=== PATIENT | male | born 2000 | race Caucasian/White ===

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

== ENCOUNTER 2022-09-09 12:42 | Emergency (ER) | payer MEDICAID, OTHER ==
--- NOTE | 2022-09-09 12:56 | ERPHSYRPT ---
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 Since that time he felt a grittiness, foreign body sensation and burning sensation each time he would blink. There was some blurred vision temporarily. However he rinsed the left eye out fairly aggressively and his symptoms of blurred vision did improve. However he still feels as though there is a foreign body present when he blinks in the left eye. Timing/Duration: today Severity: mild Associated Symptoms: denies symptoms Allergies/Adverse Reactions: No Known Drug Allergies Allergy (Verified 09/09/22 13:23) Hx Tetanus, Diphtheria Vaccination/Date Given: Yes Hx Influenza Vaccination/Date Given: No Hx Pneumococcal Vaccination/Date Given: No Travel Risk - International Travel Have you traveled outside of the country in past 3 weeks: No - Coronavirus Screening Are you exhibiting any of the following symptoms?: No Close contact with a COVID-19 positive Pt in past 14-21 Days: No - Review of Systems Constitutional: No Symptoms Eyes: Foreign Body Sensation (In left eye when he blinks the left eye), Other (Mild burning left eye pain) Ears, Nose, & Throat: No Symptoms Respiratory: No Symptoms Cardiac: No Symptoms Abdominal/Gastrointestinal: No Symptoms Genitourinary Symptoms: No Symptoms Musculoskeletal: No Symptoms Skin: No Symptoms Neurological: No Symptoms Psychological: No Symptoms Endocrine: No Symptoms Hematologic/Lymphatic: No Symptoms Immunological/Allergic: No Symptoms All Other Systems: Reviewed and Negative - Past Medical History Pertinent Past Medical History: Yes Respiratory History: Asthma Other Medical History: scott to hands- due for surg soon for grafting - Past Surgical History Past Surgical History: Yes Other Surgical History: hands,jaw -fracture - Social History Smoking Status: Never smoker Exposure to second hand smoke: No Drug Use: none Patient Lives Alone: Yes - Nursing Vital Signs Nursing Vital Signs: Initial Vital Signs Temperature 97 F 09/09/22 13:28 Pulse Rate 81 09/09/22 13:28 Respiratory Rate 18 09/09/22 13:28 Blood Pressure 131/95 09/09/22 13:28 O2 Sat by Pulse Oximetry 97 09/09/22 13:28 Pain Scale Pain Intensity 5 - Physical Exam General Appearance: no apparent distress, alert, anxiety Eye Exam: PERRL/EOMI, eyes nml inspection, other (Careful examination of the left eye) Ears, Nose, Throat Exam: normal ENT inspection, moist mucous membranes Neck Exam: normal inspection ( reveals no evidence of foreign body.), non- tender, supple, full range of motion Respiratory Exam: airway intact, No chest tenderness, No respiratory distress Gastrointestinal/Abdomen Exam: No tenderness Rectal Exam: not done Back Exam: normal inspection, normal range of motion, No CVA tenderness, No vertebral tenderness Extremity Exam: normal inspection, normal range of motion, pelvis stable Neurologic Exam: alert, oriented x 3, cooperative, financial aid officer II-XII nml as tested, normal mood/affect, nml cerebellar function, nml station & gait, sensation nml Skin Exam: normal color, warm, dry Lymphatic Exam: No adenopathy SpO2 Interpretation: normal O2 Delivery: Room Air - Course Nursing assessment & vital signs reviewed: Yes Ordered Tests: Medication Summary Discontinued Medications Generic Name Dose Route Start Last Admin Trade Name Justo PRN Reason Stop Dose Admin Erythromycin 1 gm 09/09/22 14:19 09/09/22 14:21 Erythromycin Base 1 Gm Tube Eye Ointment OP 09/09/22 14:20 1 gm STAT STA Administration Erythromycin Confirm 09/09/22 14:20 Erythromycin Base 1 Gm Tube Eye Ointment Administered 09/09/22 14:21 Dose 1 gm .ROUTE .ST-MED ONE - Progress Progress: improved Progress Note: 09/09/22 14:26 This patient's medical issue is 1 of low complexity. The level complexity and the work-up performed is based on the review of the patient's past medical history and review of the patient's medication list, review of the patient's drug allergy list, history present illness and physical findings on examination. There is no need for laboratory or radiographic studies in this patient. We will treat him clinically for a corneal abrasion of his left eye. There is no obvious foreign bodies present. Counseled pt/family regarding: diagnosis, need for follow-up Medical Desision Making - Diagnostic Testing Diagnostic test were ordered, analyzed, and reviewed by me: No - Risk of complications The pt has a mod risk of morbidity or mortality based on: Need for prescription drug management - Departure Departure Disposition: Home Clinical Impression: Abrasion of left cornea Condition: Stable Critical Care Time: No Referrals: UZIEL GAGE [NON-STAFF PHY W/O PRIVILEGES] - Follow up/PCP as directed Additional Instructions: Before each instillation of erythromycin ointment into the left eye 3 times a day, rinse out the left eye aggressively. May use Tylenol and ibuprofen for pain control. Use the erythromycin ointment 3 times a day for the next 4 days. If symptoms worsen at any time, or symptoms persist beyond 4 days, follow-up with an general merchandise manager for further evaluation and management. Prescriptions: Erythromycin Base 3.5 gm [Erythromycin 3.5 GM OPHTH.] 3.5 gm OP TID #1 unit
[2022-09-09 13:28] VITALS: BP 131/95; PULSE 81; O2SAT 97
[2022-09-09] MEDS ORDERED: Erythromycin 1 GM OP STA (14:19)
[2022-09-09] MEDS ORDERED: Erythromycin 1 GM ONE (14:20)
== END 2022-09-09 14:41 | disposition home or self-care (01) ==
LOC: ED 12:42
DX: S05.02XA Injury of conjunctiva and corneal abrasion without foreign body, left eye, initial encounter (principal); W20.8XXA Other cause of strike by thrown, projected or falling object, initial encounter; Y93.H3 Activity, building and construction
CPT/HCPCS: 99281; A9270-GY

== ENCOUNTER 2023-11-23 20:06 | Emergency (ER) | payer SELFPAY ==
[2023-11-23 20:28] VITALS: TEMP 98.1
[2023-11-23] MEDS ORDERED: DUONEB 0.5-3 MG/3 ml Neb IH ONE (20:33)
[2023-11-23] MEDS: DUONEB 0.5-3 MG/3 ml Neb IH ONE (20:38)
[2023-11-23 20:46] VITALS: RESP 16
--- NOTE | 2023-11-23 20:48 | ERPHSYRPT ---
- History of Present Illness Time Seen by Provider: 11/23/23 20:30 Source: patient Exam Limitations: no limitations Patient Subjective Stated Complaint: pt states he has had a cough and chest congestion for last week. Triage Nursing Assessment: pt alert and oriented, answers questions approp. pt ambualtes into room with steady gait noted. respirations nonlabored with exp wheezing noted bilat. Physician History: 23yo m w/ pmhx of asthma presents w/ 1wk productive cough. Pt reports multiple sick contacts w/ URI sx at work. Pt denies any known fevers at home, does endorse some diarrhea but no vomiting. Pt reports cough is productive of yellow sputum. Pt denies any sore throat, does endorse some sinus congestion and fatigue. Pt reports good PO intake. Timing/Duration: week(s) (1) Cough Quality/Degree: moderate, productive cough Possible Cause: occasional episodes Associated Symptoms: cough, nasal congestion, nasal drainage, No fever, No chills, No chest pain/soreness, No dizziness, No earache, No facial pain, No headache, No shortness of breath, No sinus infection, No sore throat, No wheezing Allergies/Adverse Reactions: No Known Drug Allergies Allergy (Verified 11/23/23 20:28) Hx Tetanus, Diphtheria Vaccination/Date Given: Yes Hx Influenza Vaccination/Date Given: No Hx Pneumococcal Vaccination/Date Given: No Immunizations Up to Date: Yes Travel Risk - International Travel Have you traveled outside of the country in past 3 weeks: No - Emerging Infectious Disease Are you exhibiting symptoms associated with any current EIDs: Yes Symptoms: Cough: New Onset - Review of Systems Constitutional: Fatigue, No Fever, No Chills Respiratory: Cough, No Dyspnea, No Stridor, No Wheezing Cardiac: No Chest Pain, No Palpitations, No Syncope Abdominal/Gastrointestinal: Diarrhea, No Abdominal Pain, No Nausea, No Vomiting Skin: No Symptoms - Past Medical History Pertinent Past Medical History: Yes Respiratory History: Asthma Other Medical History: scott to hands- due for surg soon for grafting - Past Surgical History Past Surgical History: Yes Musculoskeletal: Orthopedic Surgery Other Surgical History: hands,jaw -fracture - Social History Smoking Status: Never smoker Exposure to second hand smoke: No Drug Use: none Patient Lives Alone: Yes - Social Determinants of Health Will the patient participate in the screening: Yes Do you worry about a steady place to live?: No Do you have any problems with any of the following?: No known problems In the past 12 months,have you had to go without utilities?: No Transportation Issues: No Has anyone in your support network made you feel unsafe?: No Have you or anyone in your house had to go without enough: No - Nursing Vital Signs Nursing Vital Signs: Initial Vital Signs Temperature 98.1 F 11/23/23 20:11 Pulse Rate 85 11/23/23 20:11 Respiratory Rate 16 11/23/23 20:11 Blood Pressure 160/89 11/23/23 20:11 O2 Sat by Pulse Oximetry 97 11/23/23 20:11 Pain Scale Pain Intensity 0 - Physical Exam General Appearance: no apparent distress, alert Ears, Nose, Throat Exam: normal ENT inspection, TMs normal, pharynx normal, moist mucous membranes Respiratory Exam: airway intact, rhonchi, No respiratory distress, No diminished breath sounds, No accessory muscle use, No prolonged expirations, No crackles/rales, No wheezing, No stridor Cardiovascular Exam: regular rate/rhythm, normal heart sounds, normal peripheral pulses Gastrointestinal/Abdomen Exam: soft, normal bowel sounds, No tenderness Skin Exam: normal color, warm, dry SpO2 Interpretation: normal SpO2: 97 O2 Delivery: Room Air Ordered Tests: Active Orders 24 hr Category Date Time Status CHEST 2 VIEWS (PA AND LAT) Stat Exams 11/23/23 20:27 Taken Respiratory Therapy Assessment DAILY RT 11/23/23 20:45 Active Medication Summary Discontinued Medications Generic Name Dose Route Start Last Admin Trade Name Jermaineq PRN Reason Stop Dose Admin Albuterol/Ipratropium 3 ml 11/23/23 20:27 11/23/23 20:38 Ipratropium/Albuterol Sulfate 3 Ml Ampul.Neb IH 11/23/23 20:28 3 ml STAT ONE Administration Albuterol/Ipratropium Confirm 11/23/23 20:33 Ipratropium/Albuterol Sulfate 3 Ml Ampul.Neb Administered 11/23/23 20:34 Dose 3 ml IH .STK-MED ONE Lab/Rad Data: Laboratory Results 11/23/23 Range/Units 20:35 Influenza Type A Ag NEGATIVE (NEGATIVE) Influenza Type B Ag NEGATIVE (NEGATIVE) RSV (PCR) NEGATIVE (NEGATIVE) SARS-CoV-2 (PCR) NEGATIVE (NEGATIVE) - Progress Progress: improved Air Movement: good Progress Note: 11/23/23 22:09 pt reports cough improved significantly w/ duoneb treatment lung sound moderately improved on re-exam Plan to discharge home w/ PCP follow up w/in 1 week w/ Dr Toribio will send albuterol inhaler to pharmacy for as needed use return to ED if: develop shortness of breath, develop chest pain 11/23/23 22:14 Blood Culture(s) Obtained: No Antibiotics given: No Counseled pt/family regarding: lab results, diagnosis, need for follow-up, rad results Medical Desision Making - Diagnostic Testing Diagnostic test were ordered, analyzed, and reviewed by me: Yes Radiological Interpretation: Interpreted by me, Reviewed by me - Risk of complications Minimal Risk: Minimal risk of morbidity - Departure Departure Disposition: Home Clinical Impression: Cough Qualifiers: Cough type: acute Qualified Code(s): R05.1 - Acute cough Condition: Stable Critical Care Time: No Referrals: BETSEY TORIBIO MD [Primary Care Provider] - Follow up/PCP as directed Additional Instructions: Plan to discharge home w/ PCP follow up w/in 1 week w/ Dr Toribio will send albuterol inhaler to pharmacy for as needed use return to ED if: develop shortness of breath, develop chest pain Prescriptions: Albuterol Sulfate [Albuterol Sulfate Hfa] 8.5 gm IH Q6HPRN PRN #1 inh PRN Reason: Cough
[2023-11-23 20:57] VITALS: O2SAT 97
[2023-11-23 21:25] LABS: INFLUENZA A NEGATIVE (NEGATIVE); INFLUENZA B NEGATIVE (NEGATIVE); RESPIRATORY SYNCTIAL VIRUS NEGATIVE (NEGATIVE); SARS-CoV-2 Xpert Express NEGATIVE (NEGATIVE)
[2023-11-23 22:28] VITALS: BP 145/74; PULSE 72
--- NOTE | 2023-11-24 08:48 | XRAY ---
Indication: Cough. Comparison: June 21, 2013 PA/lateral chest again demonstrates normal heart, lungs, and bony thorax.
== END 2023-11-23 22:26 | disposition home or self-care (01) ==
LOC: ED 20:06
DX: R05.1 Acute cough (principal); R09.81 Nasal congestion; R53.83 Other fatigue; Z79.899 Other long term (current) drug therapy
CPT/HCPCS: 0241U; 71046; 94640; 99282; A9270-GY

== ENCOUNTER 2024-05-18 19:14 | Emergency (ER) | payer BC, OTHER ==
[2024-05-18 19:31] VITALS: TEMP 98.5; O2SAT 98
[2024-05-18] MEDS ORDERED: DELTASONE 20 MG ONE (19:56)
[2024-05-18] MEDS ORDERED: Augmentin 875-125 Tablet ONE (19:56)
--- NOTE | 2024-05-18 19:57 | ERPHSYRPT ---
- History of Present Illness Time Seen by Provider: 05/18/24 19:35 Source: patient Exam Limitations: no limitations Patient Subjective Stated Complaint: c/o left sided ear pain Triage Nursing Assessment: patient brought into ED with c/o left sided ear pain. patient had some redness present in left ear canal. patient denies a cough, sorethroat, rhinitis, or headaches. throat slightly reddened. patient stated that symtpoms started on 05/17/3023 and symptoms are getting worse. vitals wnl, skin w/n/d, gait steady, patient doesn't appear to be in any distress at this time. Physician History: 23-year-old male presents to our ED with his mother for evaluation of muffled hearing at his left ear. Patient describes some discomfort as a pressure sensation. Patient has rhinorrhea and sinus pressure as well. Symptoms have been ongoing for the past 2 to 3 days. Patient feels the symptoms are progressive. Symptoms are mild to moderate in intensity. No specific worsening or improving factors. Patient reports he is otherwise healthy. No other systemic manifestations. No headache no photophobia no neck pain. No meningeal signs. Mother at bedside. They voiced no other complaints or concerns at this time. Portions of this note were created with voice recognition technology. There may be grammatical, spelling, punctuation or sound alike errors Timing/Duration: day(s) (2 to 3 days) Severity: moderate Modifying Factors: Improves With: nothing Associated Symptoms: denies symptoms Allergies/Adverse Reactions: No Known Drug Allergies Allergy (Verified 05/18/24 19:22) Hx Tetanus, Diphtheria Vaccination/Date Given: Yes Hx Influenza Vaccination/Date Given: No Hx Pneumococcal Vaccination/Date Given: No Travel Risk - International Travel Have you traveled outside of the country in past 3 weeks: No - Emerging Infectious Disease Are you exhibiting symptoms associated with any current EIDs: No Symptoms: Cough: New Onset - Review of Systems Constitutional: No Symptoms, No Fever, No Chills Eyes: No Symptoms Ears, Nose, & Throat: No Symptoms Respiratory: No Symptoms, No Cough, No Dyspnea Cardiac: No Symptoms, No Chest Pain, No Edema, No Syncope Abdominal/Gastrointestinal: No Symptoms, No Abdominal Pain, No Nausea, No Vomiting, No Diarrhea Genitourinary Symptoms: No Symptoms, No Dysuria Musculoskeletal: No Symptoms, No Back Pain, No Neck Pain Skin: No Symptoms, No Rash Neurological: No Symptoms, No Dizziness, No Focal Weakness, No Sensory Changes Psychological: No Symptoms Endocrine: No Symptoms Hematologic/Lymphatic: No Symptoms Immunological/Allergic: No Symptoms All Other Systems: Reviewed and Negative - Past Medical History Pertinent Past Medical History: Yes Respiratory History: Asthma Other Medical History: scott to hands- due for surg soon for grafting, broken jaw in 2011 - Past Surgical History Past Surgical History: Yes Musculoskeletal: Orthopedic Surgery Other Surgical History: hands,jaw -fracture - Social History Smoking Status: Never smoker Exposure to second hand smoke: No Drug Use: none - Social Determinants of Health Will the patient participate in the screening: Yes Do you worry about a steady place to live?: No Do you have any problems with any of the following?: No known problems In the past 12 months,have you had to go without utilities?: No Transportation Issues: No Has anyone in your support network made you feel unsafe?: No Have you or anyone in your house had to go w/o enough food: No - Nursing Vital Signs Nursing Vital Signs: Initial Vital Signs Temperature 98.5 F 05/18/24 19:22 Pulse Rate 100 H 05/18/24 19:22 Respiratory Rate 19 05/18/24 19:22 Blood Pressure 139/75 05/18/24 19:22 O2 Sat by Pulse Oximetry 98 05/18/24 19:22 Pain Scale Pain Intensity 0 - Physical Exam General Appearance: no apparent distress, alert Eye Exam: PERRL/EOMI, eyes nml inspection Ears, Nose, Throat Exam: normal ENT inspection, TMs normal, pharynx normal, moist mucous membranes, other (Erythematous posterior pharynx, left otitis media and rhinorrhea/nasal congestion) Neck Exam: normal inspection, non-tender, supple, full range of motion Respiratory Exam: normal breath sounds, lungs clear, airway intact, No resp iratory distress Cardiovascular Exam: regular rate/rhythm, normal heart sounds, normal peripheral pulses Gastrointestinal/Abdomen Exam: soft, normal bowel sounds, No tenderness, No mass Back Exam: normal inspection, normal range of motion, No CVA tenderness, No vertebral tenderness Extremity Exam: normal inspection, normal range of motion, pelvis stable Neurologic Exam: alert, oriented x 3, cooperative, normal mood/affect, nml cerebellar function, nml station & gait, sensation nml, No motor deficits Skin Exam: normal color, warm, dry, No rash Lymphatic Exam: No adenopathy SpO2 Interpretation: normal SpO2: 98 O2 Delivery: Room Air - Course Nursing assessment & vital signs reviewed: Yes Ordered Tests: Medication Summary Discontinued Medications Generic Name Dose Route Start Last Admin Trade Name Justo PRN Reason Stop Dose Admin Amoxicillin/Clavulanate Potassium 875 mg 05/18/24 19:54 Amox Tr/Potassium Clavulanate 875 Mg Tablet PO 05/18/24 19:55 STAT ONE Prednisone 60 mg 05/18/24 19:54 Prednisone 20 Mg Tablet PO 05/18/24 19:55 STAT ONE - Progress Progress: improved Progress Note: 23-year-old male with no significant past medical history presents to our ED with his mother for evaluation of left ear pressure URI symptomology sinus pressure that has been on going for approximately 2 to 3 days. Patient symptoms are progressive. Physical exam reveals an erythematous oropharynx a injected left tympanic membrane that is slightly bulging versus the contralateral side. No cervical lymphadenopathy. Lungs are otherwise clear no other physical exam findings to speak of. Patient received an oral dose of prednisone 60 mg. Patient also received a dose of Augmentin in our ED. A prescription for the same was forwarded to patient's pharmacy. Patient agrees to follow-up with his primary care doctor within 48 hours for reevaluation. Patient voices no other complaints or concerns at this time. Portions of this note were created with voice recognition technology. There may be grammatical, spelling, punctuation or sound alike errors Complexity of problem addressed is moderate acute complicated. No critical care time. Complexity of data reviewed and analyzed is none. No specialized testing ordered. Diagnosis made based on history and physical exam. Risk of complication and or risk of morbidity/mortality of patient management is moderate. A prescription for Augmentin and prednisone forwarded to patient's pharmacy. Vital stable. Time spent to discharge patient is approximately 15 minutes. Plan of care established for shared decision making. No social determinants of health present to impede follow-up. Portions of this note were created with voice recognition technology. There may be grammatical, spelling, punctuation or sound alike errors 05/18/24 20:03 Counseled pt/family regarding: diagnosis, need for follow-up - Departure Departure Disposition: Home Clinical Impression: Otitis media, Pharyngitis, Sinusitis Condition: Stable Critical Care Time: No Referrals: BETSEY TORIBIO MD [Primary Care Provider] - Follow up/PCP as directed Additional Instructions: Discharge/Care Plan BROOKLYN VEE was seen on 05/18/24 in the Emergency Room. The patient was counseled regarding Diagnosis,Lab results, Imaging studies, need for follow up and when to return to the Emergency Room. Prescriptions given: Discharge Note I have spoken with the patient and/or caregivers. I have explained the patient's condition, diagnosis and treatment plan based on the information available to me at this time. I have answered the patient's and/or caregiver's questions and addressed any concerns. The patient and/or caregivers have as good understanding of the patient's diagnosis, condition and treatment plan as can be expected at this point. The vital signs have been stable. The patient's condition is stable and appropriate for discharge from the emergency department. The patient will pursue further outpatient evaluation with the primary care physician or other designated or consulting physician as outlined in the discharge instructions. The patient and/or caregivers are agreeable to this plan of care and follow-up instructions have been explained in detail. The patient and/or caregivers have received these instruction. The patient/and or caregivers are aware that any significant change in condition or worsening of symptoms should prompt an immediate return to this or the closest emergency department or call 911. Prescriptions: Amox Tr/Potass Clav. 875 mg [Augmentin 875-125 Tablet] 875 mg PO BID 7 Days #14 tablet Prednisone 10 mg [Deltasone 10 mg] 40 mg PO DAILY 3 Days #12 tablet
[2024-05-18] MEDS: Augmentin 875-125 Tablet PO ONE (19:58)
[2024-05-18] MEDS: DELTASONE 20 MG PO ONE (19:58)
[2024-05-18 20:11] VITALS: BP 136/71; PULSE 91; RESP 18
== END 2024-05-18 20:11 | disposition home or self-care (01) ==
LOC: ED 19:14
DX: H66.92 Otitis media, unspecified, left ear (principal); J02.9 Acute pharyngitis, unspecified; J32.9 Chronic sinusitis, unspecified; H91.92 Unspecified hearing loss, left ear; Z79.52 Long term (current) use of systemic steroids; Z79.899 Other long term (current) drug therapy
CPT/HCPCS: 99282; 99283; A9270-GY